=== PATIENT | female | born 1965 | race Caucasian/White ===

== ENCOUNTER 2023-01-09 07:25 | Day surgery (SDC) | payer OTHER ==
[2023-01-05 12:31] VITALS: BMI 27.2
[2023-01-09 09:31] LABS: #Eosinphils 0.2 thou/uL (0.0-0.7); #Monocytes 0.4 thou/uL (0.11-0.59); #Neutrophils 4.2 thou/uL (1.40-6.50); %Basophils 0.6 % (0.0-1.0); %Eosinophils 2.8 % (0.0-10.0); %Lymphocytes 27.7 % (21.0-51.0); %Neutrophils 62.6 % (42.0-75.0); Hemoglobin 12.7 g/dL (12.0-16.0); Mean Corpuscular HGB CONC 33.2 g/dL (32.0-36.0); Mean Corpuscular Hemoglobin 30.6 pg (27.0-31.0); Mean Corpuscular Volume 92.3 fl (78.0-98.0); Platelet Count 249 10x3/uL (130-400); RBC Distribution Width 12.2 % (11.5-14.5); Red Blood Cell (RBC) Count 4.15 mill/uL (4.20-5.40); White Blood Cell (WBC) Count 6.8 10x3/uL (4.8-10.8)
[2023-01-09 09:49] LABS: Anion Gap 16 mmol/L (10-20); BUN (Urea Nitrogen) 18 mg/dL (9.8-20.1); Calc. Creatinine Clearance 72 mL/min (70-130); Calcium 10.1 mg/dL (7.8-10.44); Carbon Dioxide 23 mmol/L (22-29); Chloride 105 mmol/L (98-107); Estimated GFR 63; Glucose 275 mg/dL (70-105); Potassium 4.9 mmol/L (3.5-5.1); Sodium 139 mmol/L (136-145)
[2023-01-09] MEDS ORDERED: Thrombin 5000 UNITS/5 ML VIAL ONE (11:50)
[2023-01-09] MEDS ORDERED: Vancomycin 1 GM VIAL ONE (11:50)
[2023-01-09] MEDS ORDERED: Fentanyl 250 MCG/5 ML VIAL ONE (12:09)
[2023-01-09] MEDS ORDERED: Sodium Chloride 0.9% 100 ML ONE (12:18)
[2023-01-09] MEDS ORDERED: CEFAZOLIN 2 GM VIAL ONE (12:18)
[2023-01-09] MEDS ORDERED: Ondansetron PF 4 MG/2 ML Vial ONE (12:30)
[2023-01-09] MEDS ORDERED: ePHEDrine Sulfate 50 MG/10 ML VIAL ONE (12:30)
[2023-01-09] MEDS ORDERED: Glycopyrrolate 0.2 MG/ML 5 ML SYRINGE ONE (12:30)
[2023-01-09] MEDS ORDERED: Lidocaine 1% PF 5 ML VIAL ONE (12:30)
[2023-01-09] MEDS ORDERED: NEOSTIGMINE 3 MG/3 ML SYR 3 MG/3 ML SYRINGE ONE (12:30)
[2023-01-09] MEDS ORDERED: Rocuronium Bromide 10 MG/ML (10ML VIAL) ONE (12:30)
[2023-01-09] MEDS ORDERED: PROPOFOL 200 MG/20 ML VIAL ONE (12:30)
[2023-01-09] MEDS ORDERED: Propofol 500 MG/50 ML VIAL ONE (12:42)
[2023-01-09] MEDS ORDERED: fentaNYL 50 mcg/mL 1 mL Vial ONE (14:26)
[2023-01-09] MEDS ORDERED: HYDROcodone/Acetaminophen 5/325 mg Tablet ONE (15:17)
== END 2023-01-09 17:42 | disposition home or self-care (01) ==
LOC: SDC 07:25
PROVIDERS: ATTEND Neurological Surgery
PROC: 0SG00AJ Fusion of Lumbar Vertebral Joint with Interbody Fusion Device, Posterior Approach, Anterior Column, Open Approach (ICD-10-PCS; principal; 2023-01-09)
DX: M43.16 Spondylolisthesis, lumbar region (principal); M71.38 Other bursal cyst, other site; E11.9 Type 2 diabetes mellitus without complications; I10 Essential (primary) hypertension; E03.9 Hypothyroidism, unspecified
CPT/HCPCS: 80048; 85025; 93005; 93010; C1713; J2405; J2704; J3010; J3370; J3490